=== PATIENT | female | born 1950 | race Caucasian/White ===

== ENCOUNTER 2022-09-14 14:52 | Emergency (ER) | payer OTHER, MEDICARE ==
[~2022-09-14] VITALS: Ht 170.2 cm; Wt 78.9 kg
[2022-09-14 15:12] VITALS: BP_SYST 137
--- NOTE | 2022-09-14 19:00 | NUR ---
Patient arrived for laceration. Denies active pain at the moment. Dr. Rodriguez came to [facility] patient.
[2022-09-14] MEDS ORDERED: ONDA-8 TL (19:08)
[2022-09-14] MEDS ORDERED: IBUP-1969 PO (19:09)
--- NOTE | 2022-09-14 19:16 | NUR ---
Patient given written and verbal discharge instructions and verbalizes understanding. ER MD discussed with patient the results and treatment provided. Patient in stable condition. ID arm band removed. Rx of IBUPROFEN AND ONDANSETRON given. Patient educated on pain management and to follow up with PMD. Pain Scale 0/10 Opportunity for questions provided and answered.
[2022-09-14 20:08] VITALS: BP_SYST 135
== END 2022-09-14 19:16 | disposition home or self-care (01) ==
LOC: SED 14:52
DX: S09.90XA Unspecified injury of head, initial encounter (principal); Z79.899 Other long term (current) drug therapy; X58.XXXA Exposure to other specified factors, initial encounter; Y93.89 Activity, other specified; Y92.89 Other specified places as the place of occurrence of the external cause; Y99.8 Other external cause status
CPT/HCPCS: 70450-TC; 76376; 99284